=== PATIENT | male | born 1960 | race Caucasian/White ===

== ENCOUNTER 2020-05-14 12:17 | Outpatient (CLI) | payer BC ==
--- NOTE | 2020-05-14 14:51 | MRI ---
LUMBAR SPINE MRI WITHOUT CONTRAST: DATE: 05/14/2020. COMPARISON: None. HISTORY: Low back muscle spasms, lumbar radiculopathy. TECHNIQUE: Multiplanar, multisequence MR imaging of the lumbar spine provided without contrast. FINDINGS: The sagittal STIR imaging demonstrates degenerative edematous end plate change at L4-5 and L5-S1 post eriorly in the central and left paracentral regions. No evidence for acute fracture is appreciated o n this exam. On the basis of 5 lumbar-type vertebral bodies, the conus medullaris terminates at the T12-L1 level. T12-L1: Mild bilateral facet hypertrophy. Disk space narrowing with disk desiccation and mild disk bulge. No significant central canal or neural foraminal stenosis. L1-2: Unremarkable. L2-3: Unremarkable. L3-4: There is disk space narrowing with disk desiccation and mild disk bulge. There is mild bilate ral facet hypertrophy, right greater than left. There is mild central canal and bilateral neural for aminal stenosis, right greater than left. There is a small foraminal disk protrusion on the right. There is a benign hemangioma within the L3 vertebral body. L4-5: Mild bilateral facet hypertrophy and hypertrophy of the ligamentum flavum. There is disk spac e narrowing with disk desiccation and disk bulge leading to a mild degree of central canal stenosis. On the basis facet hypertrophy and disk bulge, there is mild right neural foraminal stenosis and sev ere left neural foraminal stenosis. L5-S1: There is disk space narrowing with disk desiccation and disk bulge. There is a central annul ar tear within an associated central disk protrusion abutting the ventral aspect of bilateral S1 nerv e roots, right greater than left. This leads to a mild degree of central canal stenosis. There is b ilateral facet hypertrophy. On the basis of disk bulge and facet hypertrophy, there is moderate and severe left neural foraminal stenosis. Review of the retroperitoneal structures demonstrates no acute findings. IMPRESSION: Multilevel degenerative change within the lumbar spine, most prominent at the L4-5 and L5-S1 level as detailed above. POS: [facility]
== END 2020-05-14 12:18 | disposition home or self-care (01) ==
LOC: TBSIIMAG 12:17
PROVIDERS: ATTEND Neurological Surgery
DX: M47.26 Other spondylosis with radiculopathy, lumbar region (principal); M54.12 Radiculopathy, cervical region; M47.817 Spondylosis without myelopathy or radiculopathy, lumbosacral region
CPT/HCPCS: 72148

== ENCOUNTER 2022-10-06 11:50 | Outpatient (CLI) | payer BC | END 2022-10-06 11:51 | disposition home or self-care (01) | LOC: SCSMRI 11:50 | PROVIDERS: ATTEND Otolaryngology Plastic Surgery within the Head & Neck | DX: H81.4 Vertigo of central origin (principal); R51.9 Headache, unspecified; R90.82 White matter disease, unspecified; H05.402 Unspecified enophthalmos, left eye; J34.89 Other specified disorders of nose and nasal sinuses | CPT/HCPCS: 70553; 82565 ==